=== PATIENT | male | born 1975 | race Caucasian/White ===

== ENCOUNTER 2017-05-13 15:55 | Emergency (ER) | payer MEDICAID | END 2017-05-13 18:20 | disposition home or self-care (01) | LOC: FTE 15:55 | DX: L02.212 Cutaneous abscess of back [any part, except buttock and flank] (principal); F17.210 Nicotine dependence, cigarettes, uncomplicated | CPT/HCPCS: 10060; 99283-25 ==

== ENCOUNTER 2017-05-15 11:36 | Emergency (ER) | payer MEDICAID | END 2017-05-15 11:59 | disposition home or self-care (01) | LOC: E/R 11:59 | DX: Z48.01 Encounter for change or removal of surgical wound dressing (principal) | CPT/HCPCS: 99281; Z7502 ==

== ENCOUNTER 2017-08-27 08:46 | Emergency (ER) | payer SELFPAY, MEDICAID | END 2017-08-27 09:16 | disposition home or self-care (01) | LOC: FTE 08:46 | DX: R05 Cough (principal); F17.210 Nicotine dependence, cigarettes, uncomplicated | CPT/HCPCS: 99284 ==